=== PATIENT | female | born 1930 | race Caucasian/White ===

== ENCOUNTER 2017-04-07 09:28 | Emergency (ER) | payer BC, MEDICARE ==
[~2017-04-07] VITALS: Ht 162.6 cm; Wt 54.4 kg
--- NOTE | 2017-04-07 09:31 | Emergency Room Report ---
History of Present Illness General Chief Complaint: Laceration Source: Patient, EMS Present Illness HPI The patient was feeding her cats and tripped with a glass bowl. The glass bowl that broke and she has cuts on both her hands. She has cuts there. She states her tetanus is up-to-date. The pain was minimal initially but starting to get worse at this time. Pain 5/10, some bleeding. Feels glass in one spot. No LOC. She denies diabetes or other medical problems. She also banged her R knee. It is swollen and bruised. She is able to walk. No back pain. No somatic symptoms. Allergies: Coded Allergies: CODEINE (Verified Allergy, Severe, 07/17/12) Patient History Past Medical History: see triage record Social History: Denies: smoking, alcohol use, drug use Social History Narrative at home with cats, jonathan Buchanan Reviewed Nursing Documentation: PMH: Agreed, PSxH: Agreed Nursing Documentation-PMH Past Medical History: No History, Except For Hx Hypertension: Yes Hx Gastrointestinal Problems: Yes - GERD Review of Systems All Other Systems: negative except mentioned in HPI Physical Exam Vital Signs Date Time Temp Pulse Resp B/P (MAP) Pulse Ox O2 Delivery O2 Flow Rate FiO2 04/07/17 09:21 98.2 80 20 182/94 97 Room Air Sp02 EP Interpretation: reviewed, normal General Appearance: well appearing, no apparent distress Head: normocephalic, atraumatic Eyes: bilateral eye normal inspection, bilateral eye PERRL ENT: hearing grossly normal, normal voice Neck: full range of motion, supple Respiratory: no respiratory distress, speaking full sentences Cardiovascular #1: other - good cap fill Cardiovascular #2: 2+ radial (R), 2+ radial (L) Gastrointestinal: normal inspection Musculoskeletal: gait/station normal, normal range of motion, other - ecchymoses R knee with swelling. Ligaments intact without laxity Neurologic: alert, oriented x3, normal gait, other - distal neuro nermal, grossly normal Psychiatric: mood/affect normal Skin: laceration - multiple superficial lacs (L index slightly deeper, no FB), PW R middle finger with FB (rubbed off) Medical Decision Making Diagnostic Impression: Primary Impression: Fall Qualified Codes: W19.XXXA - Unspecified fall, initial encounter Additional Impressions: Superficial lacerations Superficial laceration of hand Qualified Codes: S61.419A - Laceration without foreign body of unspecified hand, initial encounter Contusion of right knee Qualified Codes: S80.01XA - Contusion of right knee, initial encounter ER Course Patient post fall with laceration to hands and injury to R knee. Based on [facility] knee rules, no x-ray indicated. Lacerations not needing sutures. Cleaned and steri strips applied. FB removed from one. Patient agreed to take tylenol. Patient improved and ambulatory. Roc applied to knee by RN. Neurovasc tested and tension adjusted by me. Patient stable for outpatient observation and treatment. Last Vital Signs Date Time Temp Pulse Resp B/P (MAP) Pulse Ox O2 Delivery O2 Flow Rate FiO2 04/07/17 10:48 98.2 78 20 161/89 97 Room Air Status: improved Disposition: HOME, SELF-CARE Condition: Improved Scripts Acetaminophen (Tylenol) 325 Mg Tablet 650 MG ORAL Q6H Y for Prn Pain/Headache/Temp > 101, #30 TAB 0 Refills Prov: Agustin Blanco M.D. 04/07/17 Bacitracin (Bacitracin) 28.4 Gm Oint...g. 1 APPLIC TOPIC BID, #20 GM Prov: Agustin Blanco M.D. 04/07/17 Agustin Blanco M.D. Apr 07, 2017 09:31
[2017-04-07] MEDS ORDERED: Bacitracin Oint UD TOPIC ONE ×2 (09:45→09:47)
[2017-04-07] MEDS ORDERED: BACITRACIN15 GM TOPIC (10:25)
[2017-04-07] MEDS ORDERED: TYLENOL325 MG ORAL (10:25)
[2017-04-07 10:37] VITALS: BP 161/89
[2017-04-07 10:48] VITALS: BP 161/89
== END 2017-04-07 11:31 | disposition home or self-care (01) ==
LOC: EDBD 09:28 → EMR 10:17
DX: S61.211A Laceration without foreign body of left index finger without damage to nail, initial encounter (principal); S61.212A Laceration without foreign body of right middle finger without damage to nail, initial encounter; S80.01XA Contusion of right knee, initial encounter; W25.XXXA Contact with sharp glass, initial encounter; Y92.009 Unspecified place in unspecified non-institutional (private) residence as the place of occurrence of the external cause; Z88.6 Allergy status to analgesic agent; I10 Essential (primary) hypertension; K21.9 Gastro-esophageal reflux disease without esophagitis
CPT/HCPCS: 99284

== ENCOUNTER 2020-01-02 13:44 | Emergency (ER) | payer MEDICARE, OTHER ==
[~2020-01-02] VITALS: Ht 165.1 cm; Wt 68.0 kg
[2020-01-02] VITALS (8 sets, daily range): BP systolic 157–171; BP diastolic 60–79
[~2020-01-02 13:44] MED LIST: BACITRACIN15 GM TOPIC; TYLENOL325 MG ORAL
--- NOTE | 2020-01-02 14:10 | NUR ---
ED Nurse Note: Pt was brought in by ambulance from home d/t s/p fall today this morning with back pain and generalized weakness going on for 12 days. Pt is AOx4, calm and cooperative. Pt is ambulatory and incontinent. Placed on bed and gown; hooked to child monitor; noted initial BP of 194/73, satting at 97% on RA. Safety measures in placed. will continue to monitor.
--- NOTE | 2020-01-02 14:11 | NUR ---
ED Nurse Note: ERMD at bedside.
--- NOTE | 2020-01-02 14:15 | Emergency Room Report ---
History of Present Illness General Chief Complaint: Generalized Weakness Source: Patient Present Illness HPI Disclaimer: Please note that this report is being documented using DRAGON technology. This can lead to erroneous entry secondary to incorrect interpretation by the dictating instrument. HPI: 89-year-old female with history of hypertension presents from home by EMS after syncopal episode. The patient reports 2 weeks of gradual and progressive generalized weakness. She is no longer able to care for self, unable to make meals or get around her apartment. She states she has had multiple falls over the past few weeks. Cannot explain an injury to the left ankle and today states she had a syncopal episode while standing. Believes she had a brief loss of conscious but does not know the exact time. Denies preceding symptoms aside from generalized weakness prior to the fall. He is complaining of pain in the lower back that does not radiate. Has not attempted to urinate yet. Denies recent vomiting or diarrhea, fever, chills, cough, chest pain or other changes in her health. PMH: Hypertension PSH: Denied Allergies: Aspirin, codeine Social Hx: Denies drug or alcohol use Allergies: Coded Allergies: CODEINE (Verified Allergy, Severe, 07/17/12) ASPIRIN (Verified Allergy, Unknown, 01/02/20) COVID-19 Screening Contact w/high risk pt: No Recent Travel to affected area: No Experienced COVID-19 symptoms?: No COVID-19 Testing performed PLANT SPECIALIST: No Patient History Last Menstrual Period: na Nursing Documentation-PMH Past Medical History: No History, Except For Hx Hypertension: Yes Hx Gastrointestinal Problems: Yes - GERD Review of Systems All Other Systems: negative except mentioned in HPI Physical Exam Vital Signs Date Time Temp Pulse Resp B/P (MAP) Pulse Ox O2 Delivery O2 Flow Rate FiO2 01/02/20 14:01 98.1 64 18 170/79 (109) 98 Room Air General: Awake and alert, no acute distress HEENT: Normocephalic, atraumatic. There are no scalp or face hematomas, lacerations or abrasions. No tenderness or soft tissue swelling over the facial bones. EOMI. PERRLA. No septal hematoma. No oral lacerations. Dentition is intact. No malocclusion Neck: Supple, trachea midline. Arrives without cervical collar Chest Wall: No tenderness, no deformity, no crepitus CV: RRR. S1 and S2 normal. No murmur appreciated Resp: Normal work of breathing. No cough, wheezing or crackles appreciated Abd: Soft, nontender, nondistended Skin: Multiple abrasions over the lower extremities, erythema over the lateral malleolus left ankle. MSK: Normal tone and bulk. No obvious deformity. Moving all extremities. Unable to ambulate. Unable to roll over in bed. Diffuse generalized weakness. Minimal movement against gravity. Tenderness palpation over the anterior posterior aspect of the medial malleolus on the left ankle. No instability noted. Overlying erythema without edema. Neuro: Awake and alert. Mentating appropriately. Sensation is intact to light touch over the dermatomes of the upper and lower extremities Spine: There is no tenderness, step-off or deformity in the cervical spine. There is tenderness in the midline in the lower thoracic and diffusely through the lumbosacral spine with paraspinal tenderness as well. No obvious step-off or deformity. Procedures Critical Care Time Critical Care Time Total critical care time: Approximately 45 minutes Due to a high probability of clinically significant, life threatening deterioration, the patient required the highest level of preparedness to intervene emergently and I personally spent this critical care time directly and personally managing the patient. This critical care time included obtaining a history, examining the patient, pulse oximetry, ordering and reviewing studies , ordering treatments, evaluating response to treatment and updating management plan as needed, frequent reassessment and discussion with other providers as well as arranging for ultimate disposition. This critical to care time was performed to assess and manage the high probability of life-threatening deterioration that could result in multiorgan failure. This critical care time is separate from the separately billable procedures and treating other patients. Medical Decision Making Diagnostic Impression: Primary Impression: Syncope Additional Impressions: Hyponatremia Compression fracture of L1 lumbar vertebra Ribs, multiple fractures Acute pneumothorax UTI (urinary tract infection) Contusion of left ankle COVID-19 ER Course 89-year-old female presenting for evaluation of 2 weeks worsening generalized weakness with syncopal episode earlier today fall from standing. Concern for occult injury, spinal injury, ACS, dehydration, kidney failure, occult infection. Will obtain broad labs and imaging including CT scans of the spine torso and head. Patient will require admission. It does not appear that she is able to care for self at this time. 1800: CT imaging does not show any evidence of acute injury in the head or cervical spine but did show left-sided rib fractures as well as small pneumothorax and an L1 endplate compression fracture. No evidence of acute fracture in the left ankle. Patient shows signs of dehydration and did not take her blood pressure medication this morning. Her hypertension was treated. Vitals otherwise within normal limits. Saturating 99% on room air. Mild discomfort at this time ; declines further medications. Will obtain a rapid COVID swab and transfer to [facility] for trauma service evaluation. Accepted by Dr. Anton Laboratory Tests Test 01/02/20 14:20 White Blood Count 4.9 K/UL (4.8-10.8) Red Blood Count 3.45 M/UL (4.20-5.40) L Hemoglobin 11.0 G/DL (12.0-16.0) L Hematocrit 33.8 % (37.0-47.0) L Mean Corpuscular Volume 98 FL (80-99) Mean Corpuscular Hemoglobin 32.0 PG (27.0-31.0) H Mean Corpuscular Hemoglobin Concent 32.6 G/DL (32.0-36.0) Red Cell Distribution Width 12.4 % (11.6-14.8) Platelet Count 138 K/UL (150-450) L Mean Platelet Volume 5.8 FL (6.5-10.1) L Neutrophils (%) (Auto) % (45.0-75.0) Lymphocytes (%) (Auto) % (20.0-45.0) Monocytes (%) (Auto) % (1.0-10.0) Eosinophils (%) (Auto) % (0.0-3.0) Basophils (%) (Auto) % (0.0-2.0) Differential Total Cells Counted 100 Neutrophils % (Manual) 89 % (45-75) H Lymphocytes % (Manual) 6 % (20-45) L Monocytes % (Manual) 3 % (1-10) Eosinophils % (Manual) 0 % (0-3) Basophils % (Manual) 0 % (0-2) Band Neutrophils 2 % (0-8) Platelet Estimate Decreased L Platelet Morphology Normal Macrocytosis 1+ Urine Color Yellow Urine Appearance Clear Urine pH 6 (4.5-8.0) Urine Specific [place] 1.010 (1.005-1.035) Urine Protein 3+ (NEGATIVE) H Urine Glucose (UA) Negative (NEGATIVE) Urine Ketones 3+ (NEGATIVE) H Urine Blood 5+ (NEGATIVE) H Urine Nitrite Negative (NEGATIVE) Urine Bilirubin Negative (NEGATIVE) Urine Urobilinogen 4 MG/DL (0.0-1.0) H Urine Leukocyte Esterase 1+ (NEGATIVE) H Urine RBC 2-4 /HPF (0 - 2) H Urine WBC 0-2 /HPF (0 - 2) Urine Squamous Epithelial Cells Few /LPF (NONE/OCC) Urine Amorphous Sediment Few /LPF (NONE) H Urine Bacteria Moderate /HPF (NONE) H Sodium Level 125 MMOL/L (136-145) L Potassium Level 4.4 MMOL/L (3.5-5.1) Chloride Level 92 MMOL/L (98-107) L Carbon Dioxide Level 24 MMOL/L (21-32) Anion Gap 9 mmol/L (5-15) Blood Urea Nitrogen 15 mg/dL (7-18) Creatinine 1.1 MG/DL (0.55-1.30) Estimated Glomerular Filtration Rate 46.7 mL/min (>60) Glucose Level 130 MG/DL (74-106) H Lactic Acid Level 1.70 mmol/L (0.4-2.0) Calcium Level 8.1 MG/DL (8.5-10.1) L Phosphorus Level 3.1 MG/DL (2.5-4.9) Magnesium Level 2.0 MG/DL (1.8-2.4) Total Bilirubin 0.7 MG/DL (0.2-1.0) Aspartate Amino Transferase (AST) 48 U/L (15-37) H Alanine Aminotransferase (ALT) 29 U/L (12-78) Alkaline Phosphatase 47 U/L (46-116) Total Creatine Kinase 378 U/L (26-308) H Troponin I 0.000 ng/mL (0.000-0.056) Pro-B-Type Natriuretic Peptide 3050 pg/mL (0-125) H Total Protein 7.5 G/DL (6.4-8.2) Albumin 3.3 G/DL (3.4-5.0) L Globulin 4.2 g/dL Albumin/Globulin Ratio 0.8 (1.0-2.7) L EKG Diagnostic Results EKG Time: 14:34 Rate: normal Rhythm: NSR ST Segments: no acute changes Other Impression Sinus rhythm, normal axis, normal intervals, incomplete right bundle branch block pattern, nonspecific T wave changes. No acute ischemic changes Rhythm Strip Diag. Results Rhythm Strip Time: 14:34 EP Interpretation: yes Rate: 60s Rhythm: NSR, no PVC's, no ectopy Chest X-Ray Diagnostic Results Chest X-Ray Diagnostic Results : Chest X-Ray Ordered: Yes # of Views/Limited/Complete: 1 View Indication: Chest Pain EP Interpretation: Yes Interpretation: no consolidation, no effusion, no pneumothorax, other - Bilateral mild vascular congestion Impression: No acute disease Electronically Signed by: Electronically signed by Dr. Benny Sun Other X-Ray Diagnostic Results Other X-Ray Diagnostic Results : X-Ray ordered: Left ankle # of Views/Limited Vs Complete: 3 View Indication: Pain EP Interpretation: Yes Interpretation: no dislocation, no soft tissue swelling, no fractures Impression: No acute disease Electronically Signed by: Electronically signed by Dr. Benny Sun CT/MRI/US Diagnostic Results CT/MRI/US Diagnostic Results : Impression CT Head IMPRESSION: Age related senescent changes with volume loss, ventricular and sulcal prominence as well as periventricular white matter hypodensities likely microangiopathic changes. Hypodensities in the left basal ganglia also likely microischemic disease. If there is high clinical suspicion of an acute stroke, recommend correlation with MRI. No evidence of acute traumatic injury. No hemorrhage, mass effect or shift. CT spine IMPRESSION: DIFFUSE SPONDYLOSIS. NO ACUTE FRACTURE OR MALALIGNMENT. Lumbar spine IMPRESSION: FRACTURE SUPERIOR ENDPLATE OF L1 WITH SLIGHT LOSS OF HEIGHT. MILD RETROPULSION OF BONE BUT NO SIGNIFICANT SPINAL CANAL STENOSIS. MILD TO MODERATE SPONDYLOSIS. L5 APPEARS TO BE A TRANSITIONAL VERTEBRA. Thoracic Spine IMPRESSION: EXAGGERATED KYPHOSIS AND DIFFUSE SPONDYLOSIS. NO ACUTE BONY ABNORMALITY OF THE THORACIC SPINE. L1 SLIGHT COMPRESSION DEFORMITY. PLEASE SEE SEPARATE CT LUMBAR SPINE DICTATION. DILATED ESOPHAGUS WITH FLUID AND SOME FOOD DEBRIS. QUESTION HISTORY OF REFLUX. CT Torso IMPRESSION: FRACTURES OF THE LEFT FOURTH AND FIFTH RIBS NEAR THE COSTOVERTEBRAL JUNCTIONS. SMALL AMOUNT OF POSTERIOR CHEST WALL EMPHYSEMA AND ALSO SMALL LEFT PNEUMOTHORAX. EMPHYSEMATOUS CHANGES. DEPENDENT ATELECTASIS VERSUS MILD INFILTRATES IN BOTH LUNGS. DILATED ESOPHAGUS WITH FLUID AND FOOD DEBRIS. QUESTION HISTORY OF REFLUX. NO SIGN OF ACUTE TRAUMATIC INJURY OF THE ABDOMINAL VISCERA ON THIS NONCONTRAST EXAM. L1 FRACTURE. PLEASE SEE SEPARATE CT SPINE DICTATION. Critical value findings were communicated to the ordering physician. 01/02/2020 AT 4:30 PM Dictated By: Rodríguez Nelson MD Electronically Signed By: Rodríguez Nelson MD Signed Date/Time 01/02/20 [id number] CC: Benny Sun MD Last Vital Signs Date Time Temp Pulse Resp B/P (MAP) Pulse Ox O2 Delivery O2 Flow Rate FiO2 01/02/20 14:01 98.1 64 18 170/79 (109) 98 Room Air Disposition: SHORT-TERM HOSP Condition: Stable Benny Sun MD Jan 02, 2020 14:15
--- NOTE | 2020-01-02 14:15 | NUR ---
ED Nurse Note: noted multiple light purplish-skin discolorations on bilateral lower extremities and some small bruises.
[2020-01-02 14:41] LABS: HEMATOCRIT 33.8 % (37.0-47.0); MEAN CORPUSCULAR VOLUME 98 FL (80-99); PLATELET COUNT 138 K/UL (150-450); RED BLOOD COUNT 3.45 M/UL (4.20-5.40); RED CELL DISTRIBUTION WIDTH 12.4 % (11.6-14.8); WHITE BLOOD COUNT 4.9 K/UL (4.8-10.8)
[2020-01-02 14:48] LABS: APPEARANCE,URINE CLEAR; BILIRUBIN, URINE NEGATIVE (NEGATIVE); GLUCOSE, URINE (UA) NEGATIVE (NEGATIVE); KETONES,URINE 3+ (NEGATIVE); LEUKOCYTE ESTERASE ,URINE 1+ (NEGATIVE); NITRITE,URINE NEGATIVE (NEGATIVE); PH,URINE 6 (4.5-8.0); PROTEIN,URINE 3+ (NEGATIVE); UROBILINOGEN,URINE 4 MG/DL (0.0-1.0)
[2020-01-02 14:51] LABS: COLOR,URINE YELLOW
[2020-01-02 14:57] LABS: ANION GAP 9 mmol/L (5-15); BLOOD UREA NITROGEN 15 mg/dL (7-18); CALCIUM 8.1 MG/DL (8.5-10.1); CARBON DIOXIDE 24 MMOL/L (21-32); CHLORIDE 92 MMOL/L (98-107); CREATININE 1.1 MG/DL (0.55-1.30); POTASSIUM 4.4 MMOL/L (3.5-5.1); SODIUM 125 MMOL/L (136-145)
--- NOTE | 2020-01-02 15:02 | NUR ---
ED Nurse Note: Pt was taken to CT on stable condition.
[2020-01-02 15:07] LABS: ALANINE AMINOTRANSFERASE 29 U/L (12-78); ALBUMIN 3.3 G/DL (3.4-5.0); ALBUMIN/GLOBULIN RATIO 0.8 (1.0-2.7); ALKALINE PHOSPHATASE 47 U/L (46-116); ASPARTATE AMINO TRANSFERASE 48 U/L (15-37); BILIRUBIN,TOTAL 0.7 MG/DL (0.2-1.0); CREATINE KINASE 378 U/L (26-308); PHOSPHORUS 3.1 MG/DL (2.5-4.9)
--- NOTE | 2020-01-02 15:21 | NUR ---
ED Nurse Note: pt returned from CT on stable condition.
--- NOTE | 2020-01-02 15:40 | Diagnostic Imaging Report ---
EXAM: CT CT Head no Contrast INDICATION: Syncopal episode. Gradual and progressive weakness. History of multiple falls. TECHNIQUE: Axial images of the brain were obtained with subsequent sagittal and coronal reformats. All CT scans at this facility are performed using dose modulation techniques as appropriate to a performed exam including the following: automated exposure control with adjustment of the mA and/or kV according to patient size. COMPARISON STUDY: None. RADIATION DOSE: CTDIvol: 53.4 mGy DLP: 1018.8 mGy-cm Dose information generated by the CT scanner is available in PACS. FINDINGS: Mild diffuse age-related volume loss noted. There is periventricular white matter microangiopathic changes. Focal hypodensity in the left basal ganglia likely microischemic changes as well. There are bilateral basal ganglial calcifications. There is no acute large territory cortical infarct, hemorrhage, mass effect or shift. Ventricles and cisterns as well as brainstem and posterior fossa appear unremarkable. The sellar region is normal. Mild ethmoid and sphenoid sinus disease noted. Mastoid air cells and bony calvarium are intact. IMPRESSION: Age related senescent changes with volume loss, ventricular and sulcal prominence as well as periventricular white matter hypodensities likely microangiopathic changes. Hypodensities in the left basal ganglia also likely microischemic disease. If there is high clinical suspicion of an acute stroke, recommend correlation with MRI. No evidence of acute traumatic injury. No hemorrhage, mass effect or shift.
--- NOTE | 2020-01-02 16:08 | Diagnostic Imaging Report ---
EXAM: CT CT C Spine no Contrast CLINICAL HISTORY: Neck pain. TECHNIQUE: Axial images obtained through the cervical spine with subsequent sagittal and coronal reformat images. All CT scans at this facility are performed using dose modulation techniques as appropriate to a performed exam including the following: automated exposure control with adjustment of the mA and/or kV according to patient size. RADIATION DOSE: CTDIvol: 3.5 mGy DLP: 83.2 mGy-cm Dose information generated by the CT scanner is available in PACS. COMPARISON: None FINDINGS: There is anatomic alignment. Vertebral bodies are intact without compression deformity. There is no fracture, bony lesions or erosions. Degenerative disc space narrowing noted at numerous levels. Bridging osteophytes identified from C3 to C7. There is vacuum disc at C6-7. Posterior lip ridging identified at multiple levels and there is also multilevel hypertrophic facet disease. There is no prevertebral soft tissue swelling. IMPRESSION: DIFFUSE SPONDYLOSIS. NO ACUTE FRACTURE OR MALALIGNMENT.
[2020-01-02] MEDS ORDERED: cefTRIAXone 1 GM in NS 55 ML IVPB ONE (16:15)
--- NOTE | 2020-01-02 16:19 | Diagnostic Imaging Report ---
EXAM: CT CT T Spine no Contrast CLINICAL HISTORY: Back pain. TECHNIQUE: Axial images obtained through the thoracic spine with subsequent sagittal and coronal reformat images. All CT scans at this facility are performed using dose modulation techniques as appropriate to a performed exam including the following: automated exposure control with adjustment of the mA and/or kV according to patient size. RADIATION DOSE: CTDIvol: 4.4 mGy DLP: 288.9 mGy-cm Dose information generated by the CT scanner is available in PACS. COMPARISON: None FINDINGS: Are slightly exaggerated kyphosis of the thoracic spine. Diffuse osteopenia noted. No acute fracture noted in the thoracic spine. There is slight compression of the L1 vertebral body. Please see separate CT lumbar spine dictation. Degenerative disc space narrowing noted at multiple levels. There is osteophyte and spur formation throughout the thoracic spine. No acute paraspinal soft tissue abnormality demonstrated. There is incidental finding of dilated esophagus filled with food debris and fluid. Question history of reflux. IMPRESSION: EXAGGERATED KYPHOSIS AND DIFFUSE SPONDYLOSIS. NO ACUTE BONY ABNORMALITY OF THE THORACIC SPINE. L1 SLIGHT COMPRESSION DEFORMITY. PLEASE SEE SEPARATE CT LUMBAR SPINE DICTATION. DILATED ESOPHAGUS WITH FLUID AND SOME FOOD DEBRIS. QUESTION HISTORY OF REFLUX.
--- NOTE | 2020-01-02 16:23 | Diagnostic Imaging Report ---
EXAM: CT CT L Spine no Contrast CLINICAL HISTORY: Back pain. TECHNIQUE: Axial images obtained through the lumbar spine with subsequent sagittal and coronal reformat images. All CT scans at this facility are performed using dose modulation techniques as appropriate to a performed exam including the following: automated exposure control with adjustment of the mA and/or kV according to patient size. RADIATION DOSE: CTDIvol: 4.4 mGy DLP: 288.9 mGy-cm Dose information generated by the CT scanner is available in PACS. COMPARISON: None FINDINGS: There is anatomic alignment. There is fracture lucency noted through the superior endplate of the L1 vertebral body with slight loss of height. There is slight bulging of the posterior column representing retropulsion of bone estimated at 4 mm. AP diameter of the spinal canal remains in the normal range. The other vertebral bodies are intact without acute compression deformity. L5 appears to be a transitional vertebra and is partially sacralized. Degenerative disc space narrowing noted at numerous levels with osteophyte formation. There is vacuum disc at L2-3 and L4-5. Hypertrophic facet disease identified at multiple levels. There is no paraspinal soft tissue abnormality. IMPRESSION: FRACTURE SUPERIOR ENDPLATE OF L1 WITH SLIGHT LOSS OF HEIGHT. MILD RETROPULSION OF BONE BUT NO SIGNIFICANT SPINAL CANAL STENOSIS. MILD TO MODERATE SPONDYLOSIS. L5 APPEARS TO BE A TRANSITIONAL VERTEBRA.
--- NOTE | 2020-01-02 16:36 | Diagnostic Imaging Report ---
EXAM: CT CT Chest Abdomen Pelvis wo Con INDICATION: History of fall. Chest and abdominal pain. COMPARISON: None TECHNIQUE: Axial images were obtained through the chest, abdomen and pelvis without intravenous contrast. Sagittal and coronal reformats are generated. All CT scans at this facility are performed using dose modulation techniques as appropriate to a performed exam including the following: automated exposure control with adjustment of the mA and/or kV according to patient size. RADIATION DOSE: CTDIvol: 4.4 mGy DLP: 288.9 mGy-cm Dose information generated by the CT scanner is available in PACS. CHEST FINDINGS: Emphysematous changes of both lungs noted. There are dependent densities in both lung bases either atelectasis or mild infiltrate. There is a small left pneumothorax. There is also some chest wall emphysema noted in the posterior left upper chest. A subtle fracture is noted near the costovertebral junctions of the left fourth and fifth ribs. Cardiac and mediastinal structures are within normal limits. The esophagus is dilated and fluid-filled also with food debris. Question history of reflux. No significant effusion seen. ABDOMEN/PELVIS FINDINGS: The liver and spleen are homogeneous. Gallbladder is without sludge or stone and there is no wall thickening. The pancreas is unremarkable. Adrenals are normal in morphology. The kidneys are normal in size, shape and axis. Small bowel loops are nondistended. The colon is also nondistended with average amount of stool. The appendix is not visualized. There is no free fluid or free air. No pathologic adenopathy demonstrated. Urinary bladder appears unremarkable. There is midline uterus with calcified fibroid. Intimal calcifications of the abdominal aorta noted. Degenerative changes of the spine noted. Please see separate CT C-spine dictation for L1 abnormality. IMPRESSION: FRACTURES OF THE LEFT FOURTH AND FIFTH RIBS NEAR THE COSTOVERTEBRAL JUNCTIONS. SMALL AMOUNT OF POSTERIOR CHEST WALL EMPHYSEMA AND ALSO SMALL LEFT PNEUMOTHORAX. EMPHYSEMATOUS CHANGES. DEPENDENT ATELECTASIS VERSUS MILD INFILTRATES IN BOTH LUNGS. DILATED ESOPHAGUS WITH FLUID AND FOOD DEBRIS. QUESTION HISTORY OF REFLUX. NO SIGN OF ACUTE TRAUMATIC INJURY OF THE ABDOMINAL VISCERA ON THIS NONCONTRAST EXAM. L1 FRACTURE. PLEASE SEE SEPARATE CT SPINE DICTATION. Critical value findings were communicated to the ordering physician. 01/02/2020 AT 4:30 PM
--- NOTE | 2020-01-02 16:45 | Diagnostic Imaging Report ---
Procedure: XRAY Chest 1v Reason for study: Status post fall. Chest pain. Comparison films: None. FINDINGS: A single one view chest is obtained. Vascularity is normal. Diffuse interstitial densities noted likely chronic geriatric changes. There is a tiny left apical pneumothorax. The left fourth and fifth rib fractures at the costovertebral junction seen on CT is not definable on chest x-ray. No effusion seen . IMPRESSION: Tiny left apical pneumothorax. Diffuse interstitial prominence likely geriatric changes.
--- NOTE | 2020-01-02 16:52 | Diagnostic Imaging Report ---
EXAM: X-RAY XRAY Ankle Compl Min 3v L CLINICAL HISTORY: Trauma with ankle pain. COMPARISON: None FINDINGS: Total of 3 views of the left ankle were obtained. There is diffuse osteopenia appear There is no fracture, bony lesions or erosions. Small calcaneal spur noted. Ankle mortise and subtalar joints appear anatomic. Surrounding soft tissue is normal. IMPRESSION: NO FRACTURE.
--- NOTE | 2020-01-02 16:56 | NUR ---
ED Nurse Note: per ERMD, pt may have ventura catheter inserted as pt requested.
--- NOTE | 2020-01-02 18:01 | NUR ---
ED Nurse Note: covid rapid swab collected, sent to labs.
--- NOTE | 2020-01-02 18:02 | NUR ---
patient has been accepted at [facility] by the trauma team wants covid-19 testing before eleasing the bed assignment. covid testing done
[2020-01-02] MEDS ORDERED: Morphine Sulfate 2mg/ml Inj(IV/IM USE ONLY) IVP ONE (19:30)
--- NOTE | 2020-01-02 19:30 | NUR ---
ED Nurse Note: Received patient in bed with moderate distress from left fracture pain; notified ERMD. Received new orders; noted and administered analgesic. Patient AO4. NAD. Attached to monitor. BP 168/79; otherwise vitals stable. Patient currently on NC 2L; spo2 99%; denies respiratory distress. Irwin noted; intact and draining well to gravity. No skin alterations noted. Left AC 20g IV flushed and patent; saline lock. Repositioned for comfort; decreased environmental stimuli. COVID droplet precautions observed. All safety measures met; side rails raised; bed locked at lowest position. Discussed plan of care with patient; patient states understanding and willingness to cooperate. Patient aware of current physical and medical condition, NPO status, and pending admission to [facility] for HLOC; awaiting transport eta 2100.
[2020-01-02] MEDS ORDERED: Morphine Sulfate 2mg/ml Inj(IV/IM USE ONLY) ONE (19:33)
--- NOTE | 2020-01-02 20:00 | NUR ---
ED Nurse Note: no current order for ventura noted. confirmed with ERMD regarding existing ventura. ERMD gave verbal orders to previous shift and aware of ventura insertion. Noted and placed order on file.
--- NOTE | 2020-01-02 20:03 | NUR ---
ED Nurse Note: Patient reports slight relief of pain 6/10; states pain is tolerable and denies need for pharmaceutical intervention. patient resting comfortably in bed with no acute distress. All safety measures met.
--- NOTE | 2020-01-02 20:41 | NUR ---
ED Nurse Note: Report given to [facility]. Patient to be admitted to TELE 5S12 under the care of Desean BLACKMAN for transport [facility]. Addendum: 01/02/20 at 2057 by [facility] ED Nurse Note: Report given to [facility]. Patient to be admitted to ICU 5S12 under the care of Desean BLACKMAN for transport [facility].
--- NOTE | 2020-01-02 21:00 | NUR ---
ED Nurse Note: Patient sleeping comfortably in bed with no acute distress. Vitals remain stable to baseline. States pain has decreased to 3/10; denies need for further pharmeceutical intervention. Repositioned for comfort; noted left side dependency; provided with warm blanket. Updated patient on plan of care. Aware of destination to [facility] ICU; awaiting transport. Denies questions or concerns. All safety measures met. Will continue to monitor.
--- NOTE | 2020-01-02 21:15 | NUR ---
ED Nurse Note: Updated patient on new ETA 2230. Emptied ventura; drained 700ml. Patient calm and comfortable. Respirations even and unlabored. Will continue to monitor.
--- NOTE | 2020-01-02 23:00 | NUR ---
ED Nurse Note: Gave report to [facility] unit 801, patient is to be transferred to [facility], patient in stable condition at this time. report was given to roxi. patient has taken all belongings with her.
== END 2020-01-02 23:00 | disposition short-term general hospital (02) ==
LOC: EDBD 13:44 → EMR 14:43 → EDBEDREQ 18:04 → EMR 23:00
DX: U07.1 COVID-19 (principal); R55 Syncope and collapse; E87.1 Hypo-osmolality and hyponatremia; N39.0 Urinary tract infection, site not specified; J93.83 Other pneumothorax; S90.02XA Contusion of left ankle, initial encounter; S32.019A Unspecified fracture of first lumbar vertebra, initial encounter for closed fracture; S22.42XA Multiple fractures of ribs, left side, initial encounter for closed fracture; W19.XXXA Unspecified fall, initial encounter; Y92.9 Unspecified place or not applicable; Z88.6 Allergy status to analgesic agent; I10 Essential (primary) hypertension; K21.9 Gastro-esophageal reflux disease without esophagitis; M47.816 Spondylosis without myelopathy or radiculopathy, lumbar region; M40.204 Unspecified kyphosis, thoracic region
CPT/HCPCS: 36415; 70450; 71045; 71250; 72125; 72128; 72131; 73610; 74176; 80053; 81003; 82550; 83605; 83735; 83880; 84100; 84484; 85007; 85025; 87086; 93005; 96361; 96365; 96375; 99291; J0360; J0696; J2270; J7030; U0002